=== PATIENT | female | born 1965 | race Hispanic/Latino ===

== ENCOUNTER 2018-10-08 14:44 | Outpatient (CLI) | payer BC ==
--- NOTE | 2018-10-08 16:58 | ULT ---
PELVIC ULTRASOUND: HISTORY: Patient with previous history of hysterectomy. Abdominal pain. TECHNIQUE: Multiple longitudinal and transverse images of the pelvis are obtained using a Multi-Hertz curvilinea r transabdominal, as well as a Multi-Hertz endovaginal, transducer. Real-time images obtained. FINDINGS: The uterus is not visualized. The right and left ovary are not visualized. IMPRESSION: Limited pelvic ultrasound. Uterus surgically removed. Ovaries not visualized. POS: [facility]
== END 2018-10-08 14:45 | disposition home or self-care (01) ==
LOC: BICULT 14:44
PROVIDERS: ATTEND Family Medicine
DX: R10.9 Unspecified abdominal pain (principal); N94.89 Other specified conditions associated with female genital organs and menstrual cycle; Z90.710 Acquired absence of both cervix and uterus
CPT/HCPCS: 76856